=== PATIENT | male | born 1960 | race Caucasian/White ===

== ENCOUNTER 2024-08-05 20:32 | Emergency (ER) | payer OTHER ==
--- NOTE | 2024-08-05 20:53 | ERPHSYRPT ---
- History of Present Illness Source: patient Exam Limitations: no limitations Physician History: Patient had headache on his left side. He said it was pressure. He then developed some symptoms on his right side tingling. He did not have any weakness. This was from his upper extremity down to his lower extremity. He did not have any facial involvement. He is had no aphasia. He has never had symptoms like this before. He does not have a history of migraines or headaches. His neurological symptoms have resolved. The headache has since resolved as well.The symptoms started about an hour and a half prior to arrival. They are completely resolved now. Allergies/Adverse Reactions: No Known Drug Allergies Allergy (Unverified 08/05/24 20:47) Home Medications: No Reportable Medications [No Reported Medications] 08/05/24 [History] - Review of Systems Constitutional: No Symptoms Eyes: No Symptoms Ears, Nose, & Throat: No Symptoms Respiratory: No Symptoms Psychological: No Symptoms - Nursing Vital Signs Nursing Vital Signs: Initial Vital Signs Temperature 98.1 F 08/05/24 20:50 Pulse Rate 80 08/05/24 20:50 Respiratory Rate 18 08/05/24 20:50 Blood Pressure 174/96 08/05/24 20:50 O2 Sat by Pulse Oximetry 97 08/05/24 20:50 Pain Scale Pain Intensity 4 - [place] Coma Scale Best Verbal Response ([place]): (5) oriented Best Motor Response ([place]): (6) obeys commands - Physical Exam General Appearance: no apparent distress Eye Exam: bilateral eye: normal inspection, PERRL, EOMI Ears, Nose, Throat Exam: normal ENT inspection, TMs normal, pharynx normal Neck Exam: normal inspection, non-tender Respiratory: normal breath sounds, lungs clear, No chest tenderness, No respiratory distress Cardiovascular: regular rate/rhythm, normal heart sounds, normal peripheral pulses Mental Status: alert, oriented x 3 Coordination/Gait: normal finger to nose, normal gait, normal cerebellar function Motor/Sensory: no motor deficit, no sensory deficit, no pronator drift Skin Exam: normal color, warm Comments: His NIH score was 0 - Course Nursing assessment & vital signs reviewed: Yes EKG Interpreted by Me: RATE, Sinus Rhythm, NORMAL AXIS, NORMAL QRS Ordered Tests: Active Orders 24 hr Category Date Time Status NPO (ED) STAT Care 08/05/24 20:47 Active CHEST 1 VIEW (PORTABLE) Stat Exams 08/05/24 20:47 Taken HEAD WITHOUT CONTRAST [CT] Stat Exams 08/05/24 20:48 Completed CBC W DIFF Stat Lab 08/05/24 21:10 Completed CMP Stat Lab 08/05/24 21:10 Completed PROTIME WITH INR Stat Lab 08/05/24 21:10 Completed PTT Stat Lab 08/05/24 21:10 Completed Medication Summary Discontinued Medications Generic Name Dose Route Start Last Admin Trade Name Hellen PRN Reason Stop Dose Admin Aspirin 81 mg 08/05/24 21:39 08/05/24 21:57 Aspirin 81 Mg Tab.Chew PO 08/05/24 21:40 81 mg STAT ONE Administration Aspirin Confirm 08/05/24 21:49 Aspirin 81 Mg Tab.Chew Administered 08/05/24 21:50 Dose 81 mg .ROUTE .STK-MED ONE Clopidogrel Bisulfate 300 mg 08/05/24 21:39 08/05/24 21:57 Clopidogrel Bisulfate 75 Mg Tablet PO 08/05/24 21:40 300 mg STAT ONE Administration Clopidogrel Bisulfate Confirm 08/05/24 21:50 Clopidogrel Bisulfate 75 Mg Tablet Administered 08/05/24 21:51 Dose 300 mg .ROUTE .STK-MED ONE Lab/Rad Data: Laboratory Result Diagrams 08/05/24 21:10 08/05/24 21:10 Laboratory Results 08/05/24 08/05/24 08/05/24 Range/Units 21:10 21:10 21:10 WBC 6.3 (4.23-9.07) x10^3/uL RBC 4.66 (4.63-6.08) x10^6/uL Hgb 14.5 (13.7-17.5) g/dL Hct 42.6 (40.1-51.0) % MCV 91.4 (79.0-92.2) fL MCH 31.1 (25.7-32.2) pg MCHC 34.0 (32.3-36.5) g/dL RDW 12.4 (11.6-14.4) % Plt Count 274 (163-337) x10^3/uL MPV 8.1 L (9.4-12.4) fL Gran % 54.6 (34.0-67.9) % Immature Gran % (Auto) 0.2 (0.001-0.429) % Nucleat RBC Rel Count 0.0 (0.00-0.2) % Eos # (Auto) 0.08 (0.04-0.54) x10^3/uL Immature Gran # (Auto) 0.01 (0.001-0.031) x10^3u/L Absolute Lymphs (auto) 2.20 (1.32-3.57) x10^3/uL Absolute Monos (auto) 0.47 (0.30-0.82) x10^3/uL Absolute Nucleated RBC 0.00 (0.00-0.012) x10^3u/L Lymphocytes % 35.1 (21.8-53.1) % Monocytes % 7.5 (5.3-12.2) % Eosinophils % 1.3 (0.8-7.0) % Basophils % 1.3 H (0.2-1.2) % Absolute Granulocytes 3.42 (1.78-5.38) x10^3/uL Basophils # 0.08 (0.01-0.08) x10^3/uL PT 10.6 (9.4-12.5) SECONDS INR 0.97 (0.8-3.0) APTT 30.9 (25.1-36.5) SECONDS Sodium 140 (135-145) mmol/L Potassium 4.1 (3.5-5.1) mmol/L Chloride 105 (98-107) mmol/L Carbon Dioxide 25 (22-30) mmol/L Anion Gap 14.1 (5-15) MEQ/L BUN 19 (9-20) mg/dL Creatinine 0.96 (0.66-1.25) mg/dL Estimated GFR 88.8 ML/MIN Glucose 106 (74-106) mg/dL Calcium 9.5 (8.4-10.2) mg/dL Total Bilirubin 0.60 (0.2-1.3) mg/dL AST 26 (17-59) U/L ALT 17 (0-50) U/L Alkaline Phosphatase 70 (38-126) U/L Serum Total Protein 7.5 (6.3-8.2) g/dL Albumin 4.8 (3.5-5.0) g/dL - Progress Progress Note: Patient was stable throughout stay. His symptoms have resolved and have not come back. Teleneuro was involved and diagnosed him with a TIA that seems toHave complete resolution of this time. I started him on aspirin and Plavix and I am going to call the hospitalist for admission. I realize that we do not have MRI here. He is going to need an MRI in the morning. I called [facility] Dr. Ortiz excepted the patient we will transfer. 08/05/24 21:41 08/05/24 22:07 Medical Desision Making - Discussion of managment Care discussed with:: hospitalist Reviewed:: Test results, Need for additional workup Agreed on:: Treatment plan Will see patient: in hospital - Diagnostic Testing Diagnostic test were ordered, analyzed, and reviewed by me: Yes Radiological Interpretation: Interpreted by me, Reviewed by me, Teleradiologist Report - Risk of complications Minimal Risk: Minimal risk of morbidity - Departure Departure Disposition: Transfer Clinical Impression: TIA (transient ischemic attack) Condition: Stable Critical Care Time: No
[2024-08-05 21:02] VITALS: RESP 18; TEMP 98.1
[2024-08-05 21:13] LABS: Absolute Neutrophil Ct (ANC) 3.42 x10^3/uL (1.78-5.38); BASOPHIL % 1.3 % (0.2-1.2); Basophil (Absolute #) 0.08 x10^3/uL (0.01-0.08); Eosinophil % 1.3 % (0.8-7.0); Eosinophil (Absolute #) 0.08 x10^3/uL (0.04-0.54); Hematocrit 42.6 % (40.1-51.0); Hemoglobin 14.5 g/dL (13.7-17.5); IMMATURE GRAN # 0.01 x10^3u/L (0.001-0.031); IMMATURE GRAN % 0.2 % (0.001-0.429); Lymphocytes % 35.1 % (21.8-53.1); Mean Cell Volume 91.4 fL (79.0-92.2); Mean Corpuscular Hemoglobin 31.1 pg (25.7-32.2); Mean Platelet Volume 8.1 fL (9.4-12.4); Monocyte (Absolute #) 0.47 x10^3/uL (0.30-0.82); Monocytes % 7.5 % (5.3-12.2); Neutrophil % 54.6 % (34.0-67.9); Platelet Count 274 x10^3/uL (163-337); Red Blood Count 4.66 x10^6/uL (4.63-6.08); Red Cell Distribution Width 12.4 % (11.6-14.4); White Blood Count 6.3 x10^3/uL (4.23-9.07)
[2024-08-05 21:27] LABS: ALBUMIN 4.8 g/dL (3.5-5.0); ANION GAP 14.1 MEQ/L (5-15); BILIRUBIN,TOTAL 0.6 mg/dL (0.2-1.3); Calcium 9.5 mg/dL (8.4-10.2); Creatinine 1 0.96 mg/dL (0.66-1.25); EST GLOMERULAR FILTRATION RATE 88.8 ML/MIN; Potassium 4.1 mmol/L (3.5-5.1); Total Protein 7.5 g/dL (6.3-8.2)
[2024-08-05 21:28] LABS: INR 0.97 (0.8-3.0); PROTIME 10.6 SECONDS (9.4-12.5); PTT 30.9 SECONDS (25.1-36.5)
--- NOTE | 2024-08-05 21:43 | XRAY ---
CLINICAL HISTORY: CVA SX COMPARISON: None. TECHNIQUE: An axial non-contrast CT scan of the brain was performed from the skull base to the high parietal region. One of the following dose reduction techniques were utilized for this exam: Automated exposure control, adjustment of the mA and/or kV according to patient size, use of iterative reconstruction. FINDINGS: Brain Parenchyma: Normal attenuation of the cerebral hemispheres, cerebellum, and brainstem. No evidence of acute infarct, hemorrhage, or mass effect. No abnormal areas of hypo- or hyperattenuation. Ventricular System: Ventricles are normal in size and configuration. No evidence of hydrocephalus or ventricular enlargement. Subarachnoid Spaces: Normal sulci and cisterns. No evidence of subarachnoid hemorrhage or extra-axial fluid collections. Cerebellum and Brainstem: Prominent extra-axial spaces are seen along the midline in both cerebellar regions, normal variant. Otherwise unremarkable. Orbits: Normal appearance of the globes, optic nerves, and extraocular muscles. No evidence of orbital masses or abnormal signal. Sinuses: Clear paranasal sinuses. No evidence of sinusitis or mucosal thickening. Mastoid Air Cells: Clear mastoid air cells. No evidence of mastoiditis. Skull: Normal skull morphology. IMPRESSION: No established acute infarction seen at present study. Electronically Signed by: Kyrie Mora MD. (08/05/2024 21:38:59 EST) ADDENDUM: 08/05/2024 21:40:40 EST [facility] ER was called at [phone] at 08:35 PM [employer], 08/05/2024, and CHUCKY Haque was informed regarding the negative stroke results Electronically Signed by: Kyrie Mora MD. (08/05/2024 21:40:40 EST)
[2024-08-05] MEDS ORDERED: BABY ASPIRIN 81 MG CHEW ONE (21:49)
[2024-08-05] MEDS ORDERED: PLAVIX Tablet ONE (21:50)
[2024-08-05] MEDS: PLAVIX Tablet PO ONE (21:57)
[2024-08-05] MEDS: BABY ASPIRIN 81 MG CHEW PO ONE (21:57)
--- NOTE | 2024-08-05 22:14 | XRAY ---
Indication: CVA symptoms. Weakness. Dizziness. Comparison: None Portable apical lordotic chest demonstrates moderate left hemidiaphragm elevation with adjacent subsegmental atelectasis. Remaining lungs clear with incidental calcified granulomas. Heart not enlarged with CABG. Bony thorax intact with mild degenerative changes. Impression: Nonacute chest with chronic features.
[2024-08-06 01:03] VITALS: O2SAT 97
[2024-08-06 02:12] VITALS: BP 149/92; PULSE 70
== END 2024-08-06 02:30 | disposition short-term general hospital (02) ==
LOC: ED 20:32
DX: G45.9 Transient cerebral ischemic attack, unspecified (principal); R51.9 Headache, unspecified; R20.2 Paresthesia of skin
CPT/HCPCS: 36415; 70450; 71045; 80053; 85025; 85610; 85730; 99285; Q3014; A9270-GY